=== PATIENT | male | born 1985 | race African-American/Black ===

== ENCOUNTER 2018-03-20 22:46 | Inpatient (IN) | payer MEDICAID ==
[~2018-03-20] VITALS: Ht 177.8 cm; Wt 80.3 kg
[2018-03-20] MEDS ORDERED: ONDANSETRON HCL 4MG/2ML INJ IV STA (23:11)
[2018-03-20] MEDS ORDERED: ACETAMINOPHEN 325MG TABLET PO STA (23:11)
[2018-03-20] MEDS ORDERED: MORPHINE SULFATE 4 MG/ML CPJ (NOT FOR IM USE) IV STA (23:11)
[2018-03-20] MEDS ORDERED: INSULIN REGULAR (HUMULIN R) 300UNITS/3ML SUBCUT ONE (23:15)
[2018-03-20] MEDS ORDERED: SODIUM CHLORIDE 0.9% 1000ML BAG (SEPSIS BOLUS) IV ONE (23:15)
[2018-03-20] MEDS ORDERED: VANCOMYCIN 1 G PREMIX 200 ML IV ONE (23:15)
[2018-03-20] MEDS ORDERED: PIPERACILLIN/TAZ 3.375G PREMIX 50 ML IV ONE (23:15)
[2018-03-20] MEDS ORDERED: MORPHINE SULFATE 10 MG/ML CPJ IV NR (23:45)
[2018-03-20] MEDS ORDERED: MORPHINE SULFATE 4 MG/ML CPJ (NOT FOR IM USE) IV NR (23:45)
[2018-03-20 23:56] LABS: BG BASE EXCESS -3.7 mmol/L (-2.0-2.0); BG CARBOXYHEMOGLOBIN 1.1 % (0.5-1.5); BG DEOXYHEMOGLOBIN 3.9 % (0.0-5.0); BG FRACTION INSPIRED OXYGEN 21; BG HCO3 ACT 21.4 mmol/L (22.0-26.0); BG METHEMOGLOBIN 0.4 % (0.0-1.5); BG OXYHEMOGLOBIN 94.6 % (94.0-97.0); BG PCO2 39.1 mmHg (35.0-45.0); BG PH 7.357 (7.350-7.450); BG PO2 77.5 mmHg (75.0-100.0); BG SAMPLE SITE RIGHT RADIAL; BG TOTAL HEMOGLOBIN 12.4 g/dL (12.0-18.0); BG VENT MODE ROOM AIR
[2018-03-21 00:55] LABS: CLARITY URINE CLEAR (CLEAR); COLOR URINE YELLOW (YELLOW); KETONES URINE NEGATIVE (NEGATIVE); LEUKOCYTE ESTERASE URINE NEGATIVE (NEGATIVE); NITRITE URINE NEGATIVE (NEGATIVE); OCCULT BLOOD URINE TRACE (NEGATIVE); PH URINE 5.5 (4.5-8.0); PROTEIN URINE NEGATIVE (NEGATIVE); SPECIFIC GRAVITY URINE 1.026 (1.005-1.030); UROBILINOGEN URINE 0.2 E.U./dL (0.2-1.0)
[2018-03-21 01:26] LABS: HEMATOCRIT. 33.2 % (42.0-52.0); HEMOGLOBIN. 10.6 g/dL (14.0-18.0); MEAN CORPUSCULAR HEMOGLOBIN 28.7 pg (28.0-32.0); MEAN CORPUSCULAR VOLUME 89.3 fL (80.0-94.0); MEAN PLATELET VOLUME 8.4 fl (7.4-10.4); PLATELET 245 x1000/uL (130-400); RED BLOOD CELL COUNT 3.72 mill/uL (4.7-6.1); RED CELL DISTRIBUTION WIDTH 13.7 % (11.6-14.6)
[2018-03-21 01:29] LABS: CHLORIDE 102 mEq/L (98-107)
[2018-03-21 01:40] LABS: BETA HYDROXYBUTYRATE 0.1 mMol/L (0.0-0.3)
[2018-03-21 01:55] LABS: *AMPHETAMINES SCREEN URINE NEGATIVE (NEGATIVE); *BARBITURATES SCREEN URINE NEGATIVE (NEGATIVE); *BENZODIAZEPINES SCREEN URINE NEGATIVE (NEGATIVE); *COCAINE SCREEN URINE NEGATIVE (NEGATIVE); METHADONE URINE SCREEN NEGATIVE (NEGATIVE)
[2018-03-21 01:56] LABS: CANNABINOID URINE SCREEN PRESUMTIVE POSITIVE (NEGATIVE); OPIATES URINE SCREEN NEGATIVE (NEGATIVE); PHENCYCLIDINE URINE SCREEN NEGATIVE (NEGATIVE)
[2018-03-21 04:12] LABS: PLATELET ESTIMATE NORMAL
[2018-03-21] MEDS ORDERED: IOHEXOL-300 100 ML BOTTLE ONE (04:30)
[2018-03-21] MEDS ORDERED: GUAIFENESIN 200MG/10ML SUGAR FREE UDC PO PRN (07:30)
[2018-03-21] MEDS ORDERED: MAGNESIUM/ALUMINUM HYDROXIDE/SIMETHICONE 30ML UDC PO PRN (07:30)
[2018-03-21] MEDS ORDERED: DOCUSATE SODIUM 100MG CAPSULE PO PRN (07:30)
[2018-03-21] MEDS ORDERED: DIPHENHYDRAMINE 50MG/ML VIAL IV PRN (07:30)
[2018-03-21] MEDS ORDERED: IPRATROPIUM/ALBUTEROL 0.5-3(2.5)MG/3ML NEB INH PRN (07:30)
[2018-03-21] MEDS ORDERED: NA PHOS,M-B/NA PHOS,DI-BA ENEMA 118ML PR PRN (07:30)
[2018-03-21] MEDS ORDERED: MORPHINE SULFATE 10 MG/ML CPJ IV PRN (07:30)
[2018-03-21] MEDS ORDERED: ONDANSETRON HCL 4MG/2ML INJ IV PRN (07:30)
[2018-03-21] MEDS ORDERED: PIPERACILLIN/TAZ 3.375G PREMIX 50 ML IV SCH (07:30)
[2018-03-21] MEDS ORDERED: ACETAMINOPHEN 325MG TABLET PO PRN (07:30)
[2018-03-21] MEDS ORDERED: LORAZEPAM 2MG/ML CPJ IV PRN (07:30)
[2018-03-21] MEDS ORDERED: CLONIDINE 0.1MG TABLET PO PRN (07:30)
[2018-03-21 08:00] VITALS: BP 134/85
[2018-03-21] MEDS: MORPHINE SULFATE 4 MG/ML CPJ (NOT FOR IM USE) IV PRN ×3 (08:30→19:08)
[2018-03-21 09:30] VITALS: BP 134/85
[2018-03-21] MEDS ORDERED: DEXTROSE 50% WATER 50ML SYRINGE IV PRN (11:00)
[2018-03-21] MEDS: ENOXAPARIN 40MG/0.4ML SYR SUBCUT SCH (11:00)
[2018-03-21] MEDS: PIPERACILLIN/TAZ 3.375G PREMIX 50 ML IV SCH ×5 (11:47→23:25)
[2018-03-21 12:00] VITALS: BP 118/80
[2018-03-21] MEDS: SODIUM CHLORIDE 0.45% 1,000 ML IV SCH ×2 (12:19→21:20)
[2018-03-21] MEDS: BLOOD SUGAR DIAGNOSTIC STRIP TEST SCH ×3 (12:28→21:07)
[2018-03-21] MEDS: INSULIN LISPRO 100 UNITS/ML SUBCUT SCH ×3 (13:15→21:19)
[2018-03-21] MEDS: VANCOMYCIN 1250MG in DEXTROSE 5% WATER 250ML IV SCH ×2 (13:59→21:19)
[2018-03-21] MEDS ORDERED: INSU100I24 SQ (14:25)
[2018-03-21] MEDS ORDERED: INSU100V3 SUBCUT (14:25)
[2018-03-21 15:09] LABS: CHLORIDE 101 mEq/L (98-107)
[2018-03-21 16:00] VITALS: BP 119/77
[2018-03-21] MEDS ORDERED: POTASSIUM CHLORIDE 20MEQ TABLET SR PO NR (17:00)
[2018-03-21 20:21] VITALS: BP 107/64
[2018-03-21] MEDS: MORPHINE SULFATE 10MG/5ML ORAL SOLN UDC PO PRN (23:29)
[2018-03-22] VITALS: BP 111/69
[2018-03-22 04:00] VITALS: BP 113/70
[2018-03-22] MEDS: MORPHINE SULFATE 10MG/5ML ORAL SOLN UDC PO PRN ×4 (04:10→21:30)
[2018-03-22 05:57] LABS: CHLORIDE 96 mEq/L (98-107)
[2018-03-22 06:05] LABS: VANCOMYCIN TROUGH 21.2 ug/mL (5.0-10.0)
[2018-03-22] MEDS: PIPERACILLIN/TAZ 3.375G PREMIX 50 ML IV SCH ×3 (06:20→17:26)
[2018-03-22] MEDS: BLOOD SUGAR DIAGNOSTIC STRIP TEST SCH ×4 (06:20→21:31)
[2018-03-22] MEDS: VANCOMYCIN 1250MG in DEXTROSE 5% WATER 250ML IV SCH (06:20)
[2018-03-22 06:26] LABS: HEMATOCRIT. 35.2 % (42.0-52.0); HEMOGLOBIN. 11.5 g/dL (14.0-18.0); MEAN CORPUSCULAR HEMOGLOBIN 28.7 pg (28.0-32.0); MEAN CORPUSCULAR VOLUME 87.4 fL (80.0-94.0); MEAN PLATELET VOLUME 8.4 fl (7.4-10.4); PLATELET 270 x1000/uL (130-400); RED BLOOD CELL COUNT 4.02 mill/uL (4.7-6.1); RED CELL DISTRIBUTION WIDTH 13.3 % (11.6-14.6)
[2018-03-22] MEDS: INSULIN LISPRO 100 UNITS/ML SUBCUT SCH ×4 (08:06→21:31)
[2018-03-22 08:11] VITALS: BP 126/86
[2018-03-22] MEDS: SODIUM CHLORIDE 0.45% 1,000 ML IV SCH ×2 (10:02→10:07)
[2018-03-22] MEDS: INSULIN GLARGINE UD 100 UNITS/ML SYR SUBCUT SCH (10:07)
[2018-03-22 10:23] LABS: PLATELET ESTIMATE NORMAL
[2018-03-22 10:32] LABS: T4 FREE 1.18 ng/dL (0.76-1.46)
[2018-03-22] MEDS: ENOXAPARIN 40MG/0.4ML SYR SUBCUT SCH (10:45)
[2018-03-22 12:22] VITALS: BP 111/72
[2018-03-22 15:37] VITALS: BP 109/70
[2018-03-22] MEDS: VANCOMYCIN 1500MG in DEXTROSE 5% WATER 250ML IV SCH (18:21)
[2018-03-22 20:33] VITALS: BP 107/61
[2018-03-23] MEDS: SODIUM CHLORIDE 0.45% 1,000 ML IV SCH ×2 (00:35→17:13)
[2018-03-23] MEDS: PIPERACILLIN/TAZ 3.375G PREMIX 50 ML IV SCH ×4 (00:35→20:19)
[2018-03-23 04:00] VITALS: BP 111/73
[2018-03-23] MEDS: INSULIN LISPRO 100 UNITS/ML SUBCUT SCH ×4 (06:48→20:33)
[2018-03-23] MEDS: VANCOMYCIN 1500MG in DEXTROSE 5% WATER 250ML IV SCH ×2 (06:49→17:13)
[2018-03-23] MEDS: BLOOD SUGAR DIAGNOSTIC STRIP TEST SCH ×4 (06:49→20:33)
[2018-03-23] MEDS: MORPHINE SULFATE 10MG/5ML ORAL SOLN UDC PO PRN ×2 (06:49→22:48)
[2018-03-23 08:00] VITALS: BP 110/70
[2018-03-23] MEDS: INSULIN GLARGINE UD 100 UNITS/ML SYR SUBCUT SCH (10:52)
[2018-03-23] MEDS: ENOXAPARIN 40MG/0.4ML SYR SUBCUT SCH (11:00)
[2018-03-23 12:00] VITALS: BP 116/73
[2018-03-23] MEDS: HYDROCODONE/ACETAMINOPHEN 5/325MG TABLET PO PRN ×2 (12:42→20:19)
[2018-03-23 16:00] VITALS: BP 117/79
[2018-03-23 20:00] VITALS: BP 111/75
[2018-03-23 23:58] VITALS: BP 107/69
[2018-03-24] MEDS: PIPERACILLIN/TAZ 3.375G PREMIX 50 ML IV SCH ×2 (00:27→06:08)
[2018-03-24] MEDS: HYDROCODONE/ACETAMINOPHEN 5/325MG TABLET PO PRN ×2 (00:52→06:19)
[2018-03-24] MEDS: SODIUM CHLORIDE 0.45% 1,000 ML IV SCH (02:57)
[2018-03-24 04:00] VITALS: BP 126/88
[2018-03-24] MEDS: VANCOMYCIN 1500MG in DEXTROSE 5% WATER 250ML IV SCH (06:08)
[2018-03-24 06:14] LABS: CHLORIDE 92 mEq/L (98-107)
[2018-03-24] MEDS: BLOOD SUGAR DIAGNOSTIC STRIP TEST SCH (06:34)
[2018-03-24 08:00] VITALS: BP 114/76
[2018-03-24] MEDS: INSULIN LISPRO 100 UNITS/ML SUBCUT SCH (08:00)
[2018-03-24 09:18] VITALS: BP 116/77
[2018-03-24] MEDS ORDERED: SODIUM BICARBONATE 4% (2.4MEQ) 5ML VIAL IV ONE (09:47)
[2018-03-24] MEDS: INSULIN GLARGINE UD 100 UNITS/ML SYR SUBCUT SCH (10:11)
== END 2018-03-24 10:35 | disposition home or self-care (01) | DRG 720 ==
LOC: ER 22:46 → EDBEDREQTM 03-21 03:39 → EDBEDREQSVC 03-21 03:39 → 6WST 03-21 03:44 → EDBEDREQ 03-21 03:47 → ENRESERV 03-21 06:08
PROVIDERS: ADMIT Internal Medicine; ATTEND Internal Medicine
DX: A41.9 Sepsis, unspecified organism (principal); E11.65 Type 2 diabetes mellitus with hyperglycemia; E86.0 Dehydration; S50.312A Abrasion of left elbow, initial encounter; S50.311A Abrasion of right elbow, initial encounter; X58.XXXA Exposure to other specified factors, initial encounter; Y93.89 Activity, other specified; Y92.89 Other specified places as the place of occurrence of the external cause; Z79.4 Long term (current) use of insulin; Y99.8 Other external cause status; E44.1 Mild protein-calorie malnutrition
CPT/HCPCS: 36415; 36600; 71045; 73701; 80048; 80061; 80202; 80305; 82010; 82375; 82805; 82962; 83605; 84145; 84439; 84443; 84484; 87077; 93005; 93970; 96365; 96366; 96368; 96375; 99291; J1650; J1815; J2270; J2405; J2543; J3370; J3490; J7030; J7060; Q9967

== ENCOUNTER 2019-08-02 20:37 | Emergency (ER) | payer MEDICAID ==
[~2019-08-02] VITALS: Ht 170.2 cm; Wt 68.0 kg
[~2019-08-02 20:37] MED LIST: INSU100I24 SQ; INSU100V3 SUBCUT
[2019-08-02] MEDS ORDERED: IBUPROFEN 600MG TABLET PO ONE (22:45)
[2019-08-02] MEDS ORDERED: SODIUM CHLORIDE 0.9% 1,000 ML IV ONE (23:05)
[2019-08-02 23:33] LABS: BASOPHILS % 0.5 % (0.0-2.0); EOSINOPHILS % 1.4 % (0.0-5.0); HEMATOCRIT. 39.1 % (42.0-52.0); LYMPHOCYTES % 15.1 % (20.0-50.0); MEAN CORPUSCULAR VOLUME 87.5 fL (80.0-94.0); MEAN PLATELET VOLUME 8.4 fl (7.4-10.4); MONOCYTES % 8.5 % (2.0-8.0); NEUTROPHILS % 74.5 % (40.0-76.0); PLATELET 180 x1000/uL (130-400); RED BLOOD CELL COUNT 4.47 mill/uL (4.7-6.1); RED CELL DISTRIBUTION WIDTH 14.1 % (11.6-14.6)
[2019-08-02 23:38] LABS: CHLORIDE 107 mEq/L (98-107)
[2019-08-03] MEDS ORDERED: POTASSIUM CHLORIDE 20MEQ TABLET SR PO SCH (00:15)
[2019-08-03] MEDS ORDERED: INSULIN REGULAR (HUMULIN R) 300UNITS/3ML SUBCUT ONE ×2 (00:45→08:45)
[2019-08-03 06:37] VITALS: BP 127/74
== END 2019-08-03 08:55 | disposition home or self-care (01) ==
LOC: ER 20:37
DX: R59.0 Localized enlarged lymph nodes (principal); E11.9 Type 2 diabetes mellitus without complications; F12.10 Cannabis abuse, uncomplicated; Z59.0 Homelessness; Z75.1 Person awaiting admission to adequate facility elsewhere; Z79.4 Long term (current) use of insulin
CPT/HCPCS: 36415; 80053; 82962; 85025; 96372; 99283; J1815; J7030

== ENCOUNTER 2020-03-31 03:59 | Emergency (ER) | payer MEDICAID ==
[~2020-03-31] VITALS: Ht 170.2 cm; Wt 59.0 kg
[2020-03-31] MEDS ORDERED: ONDANSETRON HCL 4MG/2ML INJ IV STA (04:18)
[2020-03-31] MEDS ORDERED: SODIUM CHLORIDE 0.9% 1,000 ML IV ONE (04:30)
[2020-03-31 05:48] LABS: BASOPHILS % 0.8 % (0.0-2.0); HEMOGLOBIN. 12.3 g/dL (14.0-18.0); MEAN CORPUSCULAR HEMOGLOBIN 29.4 pg (28.0-32.0); MEAN CORPUSCULAR VOLUME 90.6 fL (80.0-94.0); MEAN PLATELET VOLUME 8.5 fl (7.4-10.4); NEUTROPHILS % 71.2 % (40.0-76.0); PLATELET 181 x1000/uL (130-400); RED BLOOD CELL COUNT 4.19 mill/uL (4.7-6.1); RED CELL DISTRIBUTION WIDTH 13.6 % (11.6-14.6)
[2020-03-31 05:54] LABS: CHLORIDE 108 mEq/L (98-107)
[2020-03-31 05:58] LABS: ETHANOL BLOOD < 10 mg/dL
[2020-03-31 06:03] LABS: PROTHROMBIN TIME 10.3 sec (9.6-11.0)
[2020-03-31] MEDS ORDERED: SODIUM CHLORIDE 0.9% 1000ML BAG (SEPSIS BOLUS) IV NR (06:30)
[2020-03-31] MEDS ORDERED: KETOROLAC 30MG/ML VIAL IV ONE (06:45)
[2020-03-31 10:15] VITALS: BP 120/84
== END 2020-03-31 10:27 | disposition home or self-care (01) ==
LOC: ER 04:13
DX: E11.65 Type 2 diabetes mellitus with hyperglycemia (principal); F12.10 Cannabis abuse, uncomplicated
CPT/HCPCS: 36415; 71045; 80053; 80320; 83690; 85025; 85610; 96360; 99284; J2405; J7030; J1885; G0480

== ENCOUNTER 2020-12-21 15:55 | Emergency (ER) | payer OTHER, MEDICAID ==
[~2020-12-21] VITALS: Ht 175.3 cm; Wt 68.0 kg
[2020-12-21] MEDS ORDERED: LACTATED RINGERS 1,000 ML IV SCH ×2 (16:45→18:15)
[2020-12-21 18:12] LABS: BASOPHILS % 0.8 % (0.0-2.0); EOSINOPHILS % 0.9 % (0.0-5.0); HEMATOCRIT. 34.2 % (42.0-52.0); HEMOGLOBIN. 11.1 g/dL (14.0-18.0); LYMPHOCYTES % 14.7 % (20.0-50.0); MEAN CORPUSCULAR HEMOGLOBIN 28.5 pg (28.0-32.0); MEAN CORPUSCULAR VOLUME 88.3 fL (80.0-94.0); MEAN PLATELET VOLUME 8.4 fl (7.4-10.4); MONOCYTES % 7.1 % (2.0-8.0); NEUTROPHILS % 76.5 % (40.0-76.0); PLATELET 211 x1000/uL (130-400); RED BLOOD CELL COUNT 3.88 mill/uL (4.7-6.1); RED CELL DISTRIBUTION WIDTH 14.4 % (11.6-14.6)
[2020-12-21 18:19] LABS: CHLORIDE 98 mEq/L (98-107)
[2020-12-21] MEDS ORDERED: INSULIN REGULAR (HUMULIN R) 300UNITS/3ML VIAL IV NR (18:45)
[2020-12-21 20:18] LABS: CLARITY URINE CLEAR (CLEAR); COLOR URINE YELLOW (YELLOW); KETONES URINE NEGATIVE (NEGATIVE); LEUKOCYTE ESTERASE URINE NEGATIVE (NEGATIVE); NITRITE URINE NEGATIVE (NEGATIVE); OCCULT BLOOD URINE 1+ (NEGATIVE); PROTEIN URINE NEGATIVE (NEGATIVE); SPECIFIC GRAVITY URINE 1.035 (1.005-1.030); UROBILINOGEN URINE 0.2 E.U./dL (0.2-1.0)
[2020-12-21] MEDS ORDERED: INSULIN REGULAR (HUMULIN R) 300UNITS/3ML VIAL IV ONE (20:30)
[2020-12-21 22:10] VITALS: BP 124/86
== END 2020-12-21 22:44 | disposition home or self-care (01) ==
LOC: ER 15:55
DX: E10.65 Type 1 diabetes mellitus with hyperglycemia (principal); E86.0 Dehydration; D64.9 Anemia, unspecified; Z79.4 Long term (current) use of insulin
CPT/HCPCS: 36415; 80053; 81003; 82962; 83605; 85025; 96374; 96376; 99284; J1815; Z7610

== ENCOUNTER 2022-12-11 13:16 | Emergency (ER) | payer MEDICAID, OTHER ==
[~2022-12-11] VITALS: Ht 170.2 cm; Wt 64.0 kg
[2022-12-11 13:18] VITALS: BP 100/60; PULSE 76; RESP 16; TEMP 98.1; O2SAT 99
[2022-12-11] MEDS ORDERED: ACETAMINOPHEN 325MG TABLET PO STA (13:27)
[2022-12-11 14:35] LABS: BASOPHILS % 0.7 % (0.0-2.0); EOSINOPHILS % 3.6 % (0.0-5.0); HEMATOCRIT. 32.9 % (42.0-52.0); HEMOGLOBIN. 10.9 g/dL (14.0-18.0); LYMPHOCYTES % 17.1 % (20.0-50.0); MEAN CORPUSCULAR HEMOGLOBIN 27.6 pg (28.0-32.0); MEAN CORPUSCULAR VOLUME 83.5 fL (80.0-94.0); MEAN PLATELET VOLUME 8.6 fl (7.4-10.4); MONOCYTES % 6.1 % (2.0-8.0); NEUTROPHILS % 72.5 % (40.0-76.0); PLATELET 233 x1000/uL (130-400); RED BLOOD CELL COUNT 3.94 mill/uL (4.7-6.1); RED CELL DISTRIBUTION WIDTH 13.4 % (11.6-14.6); WHITE BLOOD COUNT 6.3 x1000/uL (4.5-11.0)
[2022-12-11 15:34] LABS: CHLORIDE 107 mEq/L (98-107); INDEX HEMOLYSI 1 (1-3); INDEX ICTERIC 1 (1-4); INDEX LIPEMIC 1 (1-3); POTASSIUM 3.7 mEq/L (3.5-5.1); SODIUM 137 mEq/L (136-145)
[2022-12-11 15:52] LABS: ALANINE AMINOTRANSFERASE 30 IU/L (13-61); ALBUMIN 3.3 g/dL (3.4-5.0); ASPARTATE AMINOTRANSFERASE 18 IU/L (15-37); BILIRUBIN TOTAL 0.5 mg/dL (0.1-1.0); CALCIUM 9.2 mg/dL (8.5-10.1); CARBON DIOXIDE 22 mEq/L (21-32); CREATININE 1.6 mg/dL (0.6-1.3); ETHANOL BLOOD < 10 mg/dL (-10); GLUCOSE 274 mg/dL (70-105); PROTEIN TOTAL 6.9 g/dL (6.0-8.3); UREA NITROGEN BLOOD 21 mg/dL (7-21)
== END 2022-12-11 18:50 | disposition left against medical advice (07) ==
LOC: ER 13:16
DX: K85.90 Acute pancreatitis without necrosis or infection, unspecified (principal); F12.10 Cannabis abuse, uncomplicated; E11.9 Type 2 diabetes mellitus without complications
CPT/HCPCS: 36415; 74176; 80053; 80320; 85025; 99284; G0480

== ENCOUNTER 2024-12-22 16:46 | Emergency (ER) | payer MEDICAID ==
[~2024-12-22] VITALS: Ht 170.2 cm; Wt 69.0 kg
[2024-12-22 16:51] VITALS: BP 134/86; PULSE 74; RESP 14; TEMP 37.2; O2SAT 98
[2024-12-22 20:47] LABS: BASOPHILS % 0.1 % (0.0-2.0); EOSINOPHILS % 2.3 % (0.0-5.0); HEMATOCRIT. 28.0 % (42.0-52.0); HEMOGLOBIN. 8.9 g/dL (14.0-18.0); LYMPHOCYTES % 7.6 % (20.0-50.0); MEAN PLATELET VOLUME 8.5 fl (7.4-10.4); MONOCYTES % 5.5 % (2.0-8.0); NEUTROPHILS % 84.5 % (40.0-76.0); PLATELET 262 x1000/uL (130-400); RED BLOOD CELL COUNT 3.19 mill/uL (4.7-6.1); RED CELL DISTRIBUTION WIDTH 16.5 % (11.6-14.6)
[2024-12-22 20:55] LABS: CREATININE 4.4 mg/dL (0.6-1.3)
[2024-12-22 21:01] LABS: ETHANOL BLOOD < 10 mg/dL (<10); UREA NITROGEN BLOOD 59 mg/dL (9-23)
[2024-12-22 21:02] LABS: ASPARTATE AMINOTRANSFERASE 21 IU/L (<34)
[2024-12-22 21:03] LABS: BILIRUBIN DIRECT < 0.1 mg/dL (<=3.0); BILIRUBIN TOTAL 0.2 mg/dL (0.1-1.0); PROTEIN TOTAL 7.0 g/dL (6.0-8.3)
[2024-12-22 21:13] LABS: CLARITY URINE CLOUDY (CLEAR); COLOR URINE YELLOW (YELLOW); GLUCOSE URINE TRACE (NEGATIVE); KETONES URINE NEGATIVE (NEGATIVE); LEUKOCYTE ESTERASE URINE NEGATIVE (NEGATIVE); NITRITE URINE NEGATIVE (NEGATIVE); OCCULT BLOOD URINE 1+ (NEGATIVE); PH URINE 5.5 (4.5-8.0); PROTEIN URINE 3+ (NEGATIVE); SPECIFIC GRAVITY URINE 1.014 (1.005-1.030); UROBILINOGEN URINE 0.2 E.U./dL (0.2-1.0)
[2024-12-22] MEDS ORDERED: INSULIN REGULAR (DRIP) 100 UNITS in SODIUM CHLORIDE 0.9% 99 ML IV SCH (21:15)
[2024-12-22] MEDS ORDERED: BLOOD SUGAR DIAGNOSTIC STRIP TEST SCH (21:15)
[2024-12-22] MEDS ORDERED: DEXTROSE 50% WATER 50ML SYRINGE IV PRN (21:15)
[2024-12-22] MEDS ORDERED: SODIUM CHLORIDE 0.9% 1,000 ML IV SCH (21:15)
[2024-12-22] MEDS ORDERED: DEXT 5%/0.9% NACL 1,000 ML IV SCH (21:15)
[2024-12-22] MEDS ORDERED: BLOOD SUGAR DIAGNOSTIC STRIP TEST PRN (21:15)
[2024-12-22] MEDS ORDERED: SODIUM CHLORIDE 0.9% 1,000 ML IV ONE (21:15)
[2024-12-22] MEDS ORDERED: POTASSIUM CHLORIDE 40 MEQ in SODIUM CHLORIDE 0.9% 230 ML IV PRN (21:15)
[2024-12-22] MEDS ORDERED: KCL 20MEQ/100ML PREMIX 100 ML IV PRN (21:15)
[2024-12-22] MEDS ORDERED: SODIUM PHOSPHATE 15 MMOL in SODIUM CHLORIDE 0.9% 245 ML IV PRN (21:15)
[2024-12-22] MEDS ORDERED: MAGNESIUM 2 G PREMIX 50 ML IV PRN (21:15)
[2024-12-22] MEDS ORDERED: INSULIN REGULAR 100U/100ML PMX 100 ML IV SCH (21:21)
[2024-12-22 21:26] LABS: *AMPHETAMINES SCREEN URINE NEGATIVE (NEGATIVE); *BENZODIAZEPINES SCREEN URINE NEGATIVE (NEGATIVE)
[2024-12-22 21:27] LABS: *BARBITURATES SCREEN URINE NEGATIVE (NEGATIVE); *COCAINE SCREEN URINE NEGATIVE (NEGATIVE); CANNABINOID URINE SCREEN NEGATIVE (NEGATIVE); ECSTASY MDMA SCREEN URINE NEGATIVE (NEGATIVE); METHADONE URINE SCREEN NEGATIVE (NEGATIVE); OPIATES URINE SCREEN NEGATIVE (NEGATIVE); PHENCYCLIDINE URINE SCREEN NEGATIVE (NEGATIVE)
[2024-12-22 21:31] LABS: PHOSPHORUS 6.1 mg/dL (2.5-4.9)
[2024-12-22 21:49] LABS: BACTERIA URINE 3+; SQUAMOUS EPITHELIAL CELL URINE FEW /lpf (RARE/1+); WBC URINE 0-2 /hpf (0-2)
[2024-12-22 21:50] LABS: COARSE GRANULAR CASTS URINE 0-5 /lpf
[2024-12-22] MEDS ORDERED: LANC-867 TP (22:27)
[2024-12-22] MEDS ORDERED: BLOO-1465 MT (22:27)
[2024-12-22] MEDS ORDERED: INSU100I24 SQ (22:28)
[2024-12-22] MEDS ORDERED: INSU100V3 SUBCUT (22:28)
[2024-12-22] MEDS: INSULIN GLARGINE 100 UNITS/ML SUBCUT ONE (22:38)
[2024-12-22] MEDS: INSULIN LISPRO 100 UNITS/ML SUBCUT ONE (22:39)
== END 2024-12-22 23:21 | disposition left against medical advice (07) ==
LOC: ER 16:46 → CMPBEDREQ 12-23 08:55
DX: E11.65 Type 2 diabetes mellitus with hyperglycemia (principal); F12.90 Cannabis use, unspecified, uncomplicated; Z53.29 Procedure and treatment not carried out because of patient's decision for other reasons; Z79.4 Long term (current) use of insulin; Z87.891 Personal history of nicotine dependence; Z88.1 Allergy status to other antibiotic agents; Z88.2 Allergy status to sulfonamides; Z79.899 Other long term (current) drug therapy
CPT/HCPCS: 80076; 80305; 80048; 81003; 82010; 80320; 82962; 83690; 83735; 83930; 84100; 85025; 36415; 96372; 99284; J1815 ×2; J7042; J7030; Z7610; A4606; G0480

== ENCOUNTER 2025-01-04 14:40 | Emergency (ER) | payer MEDICAID ==
[~2025-01-04] VITALS: Ht 177.8 cm; Wt 73.0 kg
[~2025-01-04 14:40] MED LIST changes: +BLOO-1465 MT; +LANC-867 TP
[2025-01-04 14:45] VITALS: BP 156/93; PULSE 83; RESP 18; TEMP 36.9; O2SAT 99
[2025-02-28] MEDS ORDERED: NIFE-49 MT (13:47)
== END 2025-01-04 16:06 | disposition left against medical advice (07) ==
LOC: ER 14:40
DX: R42 Dizziness and giddiness (principal)
CPT/HCPCS: 99281